=== PATIENT | male | born 1990 | race Caucasian/White ===

== ENCOUNTER 2020-07-09 19:36 | Emergency (ER) | payer OTHER ==
[~2020-07-09] VITALS: Ht 177.8 cm; Wt 140.6 kg
[~2020-07-09 19:36] MED LIST: KETO10TA2 PO
== END 2020-07-09 22:55 | disposition home or self-care (01) ==
LOC: ER 19:36
DX: K21.9 Gastro-esophageal reflux disease without esophagitis (principal); M54.2 Cervicalgia

== ENCOUNTER 2020-10-29 22:17 | Emergency (ER) | payer OTHER ==
[~2020-10-29] VITALS: Ht 177.8 cm; Wt 136.1 kg
[2020-10-30] MEDS ORDERED: DOLOGESIC-DF 51 EACH PO (02:58)
== END 2020-10-30 03:09 | disposition home or self-care (01) ==
LOC: ER 22:17
DX: R53.81 Other malaise (principal); F06.4 Anxiety disorder due to known physiological condition

== ENCOUNTER 2021-10-23 22:20 | Emergency (ER) | payer OTHER ==
[~2021-10-23] VITALS: Ht 180.3 cm; Wt 140.6 kg
[~2021-10-23 22:20] MED LIST changes: +DOLOGESIC-DF 51 EACH PO
[2021-10-24] MEDS ORDERED: METRONIDAZOLE500 MG PO ×2 (04:42→04:45)
[2021-10-24] MEDS ORDERED: CIPRO500 MG PO (04:44)
== END 2021-10-24 05:56 ==
LOC: ER 22:20
DX: K57.92 Diverticulitis of intestine, part unspecified, without perforation or abscess without bleeding (principal); R10.31 Right lower quadrant pain; K76.0 Fatty (change of) liver, not elsewhere classified

== ENCOUNTER 2022-04-16 10:25 | Inpatient (IN) | payer OTHER ==
[~2022-04-16] VITALS: Ht 177.8 cm; Wt 146.5 kg
[~2022-04-16 10:25] MED LIST changes: +CIPRO500 MG PO; +METRONIDAZOLE500 MG PO
--- NOTE | 2022-04-16 10:53 | NUR ---
PTE SE RECIBE AMBULANDO, ALERTA Y ORIENTADO X 3. PTE VERBALIZA TENER UN ABCESO EN LA AREA DEL [facility] [place].
--- NOTE | 2022-04-16 11:41 | NUR ---
PACIENTE EVALUADO POR DR PIERRE QUIEN OR[place]NA [place] [facility] MS SALAS LE ORIENTA A PACIENTE SOBRE EL MISMO Y VERBALIZA ENTENDER. LE COLECTA MUESTRAS DE LABORATORIO Y LE ADMINISTRA MED REBA ORDEN. SE MANTIENE PACIENTE BAJO OBSERVACION POR CAMBIOS EN [place] MED[place].
== END 2022-04-19 23:34 | disposition home or self-care (01) | DRG 603 ==
LOC: ER 10:25 → O/R 17:08 → SURH 17:08
PROVIDERS: Specialist; ADMIT Internal Medicine; ATTEND Internal Medicine
PROC: 0Y953ZZ Drainage of Right Inguinal Region, Percutaneous Approach (ICD-10-PCS; principal; 2022-04-16 18:30)
DX: L02.214 Cutaneous abscess of groin (principal); K40.90 Unilateral inguinal hernia, without obstruction or gangrene, not specified as recurrent; E66.8 Other obesity; Z20.822 Contact with and (suspected) exposure to COVID-19

== ENCOUNTER 2023-06-16 10:43 | Emergency (ER) | payer OTHER ==
[~2023-06-16] VITALS: Ht 177.8 cm; Wt 145.1 kg
[2023-06-16 16:01] LABS: HEMATOCRIT 46.4 % (39.0-48.0); HEMOGLOBIN 15.8 g/dL (13-16.00); MEAN CORPUSCULAR HEMOGLOBIN 30.2 pg (27.00-32.0); PLATELET COUNT 175 K/uL (150-450); RED BLOOD COUNT 5.22 M/uL (4.00-6.00); RED CELL DISTRIBUTION WIDTH 13.3 % (11.5-14.5)
[2023-06-16 16:22] LABS: ALBUMIN 3.9 gm/dL (3.4-5.0); BILIRUBIN TOTAL 0.47 mg/dL (0.3-1.2); CALCIUM 9.5 mg/dL (8.5-10.1); CREATININE SERUM 1.17 mg/dL (0.70-1.30); GFR 72.24; GLOBULINA 4.3 G/DL (2.4-3.5); POTASSIUM 4.03 mEq/L (3.5-5.1); TOTAL PROTEIN 8.2 gm/dL (6.4-8.2)
[2023-06-16] MEDS ORDERED: OSEL75CA PO (16:43)
== END 2023-06-16 17:19 | disposition home or self-care (01) ==
LOC: ER 10:43
PROVIDERS: General Practice
DX: J10.1 Influenza due to other identified influenza virus with other respiratory manifestations (principal); Z20.822 Contact with and (suspected) exposure to COVID-19

== ENCOUNTER 2023-08-25 14:49 | Emergency (ER) | payer OTHER ==
[~2023-08-25] VITALS: Ht 177.8 cm; Wt 152.0 kg
[~2023-08-25 14:49] MED LIST changes: +OSEL75CA PO
[2023-08-25 17:20] LABS: HEMATOCRIT 45.6 % (39.0-48.0); HEMOGLOBIN 15.8 g/dL (13-16.00); MEAN CELL VOLUME 87.7 fL (80.0-100.00); MEAN CORPUSCULAR HEMOGLOBIN 30.4 pg (27.00-32.0); MEAN CORPUSCULAR HGB CONC 34.6 g/dl (32.0-36.0); PLATELET COUNT 256 K/uL (150-450); RED CELL DISTRIBUTION WIDTH 14.3 % (11.5-14.5)
[2023-08-25 17:41] LABS: INR 1.02; PARTIAL THROMBOPLASTIN TIME 31.5 SECONDS (22.0-34.0); PROTHROMBIN TIME 10.7 SECONDS (9.0-11.5)
[2023-08-25 17:42] LABS: CALCIUM 9.8 mg/dL (8.5-10.1); CREATININE SERUM 0.93 mg/dL (0.70-1.30); GFR 93.57; POTASSIUM 4.34 mEq/L (3.5-5.1)
[2023-08-25 17:49] LABS: URINE APPEARANCE Clear; URINE BILIRRUBIN Negative (NEGATIVE); URINE BLOOD Negative; URINE COLOR Yellow; URINE GLUCOSE Negative (NEGATIVE); URINE LEUKOCYTE Negative; URINE NITRATE Negative; URINE PROTEIN Negative (NEGATIVE); URINE UROBILINOGEN 0.2 E.U./dl
[2023-08-25 17:53] LABS: URINE WBC 2.1 uL (0.0-23.2)
[2023-08-25 17:58] LABS: URINE BACTERIA 2.5 uL (0.0-1933); URINE EPITHELIAL CELLS 1.3 uL (0.0-38.8); URINE RBC 1.1 uL (0.0-20.8)
[2023-08-25] MEDS ORDERED: METRONIDAZOLE500 MG PO (20:21)
[2023-08-25] MEDS ORDERED: CIPRO500 MG PO (20:21)
[2023-08-25] MEDS ORDERED: INTESTINEX680 M1 PO (20:21)
[2023-08-25] MEDS ORDERED: PEPCID AC20 MG PO (20:21)
== END 2023-08-25 20:26 | disposition home or self-care (01) ==
LOC: ER 14:50
PROVIDERS: General Practice
DX: K57.92 Diverticulitis of intestine, part unspecified, without perforation or abscess without bleeding (principal); K76.0 Fatty (change of) liver, not elsewhere classified

== ENCOUNTER 2024-11-08 16:01 | Emergency (ER) | payer OTHER ==
[~2024-11-08] VITALS: Ht 180.3 cm; Wt 145.1 kg
[~2024-11-08 16:01] MED LIST changes: +INTESTINEX680 M1 PO; +PEPCID AC20 MG PO
[2024-11-08] MEDS ORDERED: CEFTRIAXONE SODIUM 2,000 MG VIAL IV ONE (18:00)
[2024-11-08] MEDS ORDERED: CEFTRIAXONE SODIUM 2,000 MG VIAL ONE (18:40)
[2024-11-08 19:09] LABS: ERYTHROCYTE SEDIMENTATION RATE 23 mm/hr
[2024-11-08 19:11] LABS: HEMATOCRIT 48.5 % (39.0-48.0); HEMOGLOBIN 16.7 g/dL (13-16.00); MEAN CELL VOLUME 88.5 fL (80.0-100.00); MEAN CORPUSCULAR HEMOGLOBIN 30.4 pg (27.00-32.0); MEAN CORPUSCULAR HGB CONC 34.3 g/dl (32.0-36.0); PLATELET COUNT 252 K/uL (150-450); RED BLOOD COUNT 5.48 M/uL (4.00-6.00); RED CELL DISTRIBUTION WIDTH 13.2 % (11.5-14.5)
[2024-11-08 19:34] LABS: ALBUMIN 3.7 gm/dL (3.4-5.0); BILIRUBIN TOTAL 0.49 mg/dL (0.3-1.2); CALCIUM 9.8 mg/dL (8.5-10.1); CREATININE SERUM 1.1 mg/dL (0.70-1.30); GFR 76.63; GLOBULINA 4.5 G/DL (2.4-3.5); POTASSIUM 4.41 mEq/L (3.5-5.1); TOTAL PROTEIN 8.2 gm/dL (6.4-8.2)
[2024-11-08 20:15] LABS: COVID-19 AG NEGATIVE (NEGATIVE); INFLUENZA A AG NEGATIVE (NEGATIVE)
[2024-11-08] MEDS ORDERED: CEPHALEXIN500 M1 PO (21:18)
[2024-11-08] MEDS ORDERED: KETOROLAC TROMETHAMINE 30 MG VIAL IV ONE (21:30)
[2024-11-08] MEDS ORDERED: KETOROLAC TROMETHAMINE 30 MG VIAL ONE (21:32)
== END 2024-11-08 21:41 ==
LOC: ER 16:02
PROVIDERS: Preventive Medicine Public Health & General Preventive Medicine
DX: L02.415 Cutaneous abscess of right lower limb (principal); R53.81 Other malaise; Z20.822 Contact with and (suspected) exposure to COVID-19